=== PATIENT | female | born 1980 | race Caucasian/White ===

== ENCOUNTER 2017-03-23 11:22 | Outpatient (CLI) | payer MEDICAID ==
[~2017-03-23 11:22] MED LIST: PREN1TAB62 PO; QUESTRAN PO; URSO300C21 GTB
--- NOTE | 2017-03-23 12:10 | RADRPT ---
AMENDMENT: 03/23/2017 12:13:36 PM Nic Allen M.D Amended report: PROCEDURE: OB ultrasound for biophysical profile CLINICAL INDICATION: Gestational diabetes mellitus. TECHNIQUE: Multiple sonographic images of the pelvis were obtained. Transabdominal view of the gr avid uterus are available for review. The images were reviewed on a PACS workstation. COMPARISON: None FINDINGS: breathing movement = 2/2 tone = 2/2 motion = 2/2 Quantitative amniotic fluid volume = 2/2 LIZ = 17.1 cm Single live intrauterine with cardiac activity at 135 beats per minute. There is a anterior placenta without previa or abruption. IMPRESSION: 1. Single living intrauterine gestation in cephalic position. 2. Biophysical profile = 8/8. 3. LIZ = 17.1 cm. RPTAT: [facility] PROCEDURE: OB ultrasound for biophysical profile CLINICAL INDICATION: Gestational diabetes mellitus. TECHNIQUE: Multiple sonographic images of the pelvis were obtained. Transabdominal view of the gr avid uterus are available for review. The images were reviewed on a PACS workstation. COMPARISON: None FINDINGS: breathing movement = 2/2 tone = 2/2 motion = 2/2 Quantitative amniotic fluid volume = 2/2 LIZ = 17.1 cm Single live intrauterine with cardiac activity at 135 beats per minute. There is a anterior placenta without previa or abruption. IMPRESSION: 1. Single living intrauterine gestation in cephalic position. 2. Biophysical profile = 8/8. 3. LIZ = 17 point Y cm. RPTAT: [facility] Physician Petar Date Time Electronically viewed and signed by Physician Petar on 03/23/2017 12:13 /
--- NOTE | 2017-03-23 13:28 | PN ---
Triage Information Date/Time Reason for visit: GDM for NST BPP Weeks of Gestation 32+ /Para 4/3 Diabetes: none, gestational Diabetes management: diet controlled Hypertention: none Objective Heart Rate: 140's Contractions: None Results/Medications Results 24 hrs Laboratory Tests Test 03/23/17 12:03 Bedside Glucose 99 Disposition: Discharge ALLAN RIVAS M.D. Mar 23, 2017 13:28
--- NOTE | 2017-03-23 13:49 | TRIAGE ---
OB Triage Datetime Report Generated by CPN: 03/23/2017 13:48 Datetime: 03/23/2017 13:23 Stage of : OB Triage Datetime: 03/23/2017 12:43 Labor Evaluation Frequency: 0 Monitor Mode: External Resting Tone [place]: Relaxed Heart Rate FHR Baseline Rate: 145 Monitor Mode: External US Variability: Moderate 6-25 bpm Accelerations: 10X10 Decelerations: None Category: Category I Pain Assessment Pain Scale: 0 Pain Presence: None/Denies Pain Type: N/A Pain Goal: 3 Pain Relief Measures: Comfort Measures Datetime: 03/23/2017 12:03 Bedside Blood Glucose: 99 Datetime: 03/23/2017 11:45 Stage of : OB Triage Assessment Type: Triage EGA: 32.0 Time Provider Notified: 03/23/2017 13:00 Provider Notified: abusleme Maternal Assessment Level of Consciousness: Fully Conscious DTR's/Clonus: DTRs 2+; No Clonus Headache: Denies Blurred Vision: No Respiratory Effort: Unlabored; Regular Rhythm; Equal Expansion Breath Sounds, Left: Clear and Equal Breath Sounds, Right: Clear and Equal Nausea/Vomiting: Denies RUQ Epigastric Pain: Denies Facial Edema: None Temperature Route: Axillary Fall Risk Assessment History of Falling: (0) No Secondary Diagnosis: (0) No Ambulatory Aid: (0) Bedrest/Nurse Assist IV Therapy: (0) No Gait: (0) Normal/Bedrest/Immobile Mental Status: (0) Oriented to Own Ability Fall Score: 0 Fall Risk Score Definition: No Risk: No action required Labor Evaluation Frequency: 0 Monitor Mode: External Pattern: Normal: <= 5 Contractions in 10 Minutes Resting Tone [place]: Relaxed Heart Rate FHR Baseline Rate: 155 Monitor Mode: External US Variability: Moderate 6-25 bpm Accelerations: 10X10 Decelerations: None Category: Category I Pain Assessment Pain Scale: 0 Pain Presence: None/Denies Pain Type: N/A Pain Goal: 3 Pain Relief Measures: Comfort Measures Datetime: 03/23/2017 11:44 Time of Arrival: 03/23/2017 11:20 Arrived By: Ambulatory Arrived From: Home Chief Complaint: SENT FROM OFFICE FOR NST/BPP DUE TO GDM, DENIES LEAKING, UC'S, OR BLEEDING Movement: Present Contractions: Denies/Absent Rupture of Membranes: Denies Vaginal Bleeding: None Vaginal Discharge: Denies Recent Sexual Intercouse: Denies Abdominal Trauma: Not Applicable Patient Complaints: None Time Provider Notified: 03/23/2017 13:00 Provider Notified: abusleme Initial Plan: MONITOR, BPP, NST
== END 2017-03-23 13:30 | disposition home or self-care (01) ==
LOC: OBT 11:22 → L-D 11:22 → OBT 13:30
PROVIDERS: ATTEND Obstetrics & Gynecology
DX: O24.410 Gestational diabetes mellitus in pregnancy, diet controlled (principal); Z3A.32 32 weeks gestation of pregnancy
CPT/HCPCS: 76818; 82962; Z7500; G0463

== ENCOUNTER 2017-03-30 09:58 | Outpatient (CLI) | payer MEDICAID ==
[~2017-03-30] VITALS: Ht 152.4 cm; Wt 79.1 kg
[~2017-03-30 09:58] MED LIST changes: -QUESTRAN PO; -URSO300C21 GTB
[2017-03-30 10:26] VITALS: Ht 152.4 cm; Wt 79.1 kg
[2017-03-30 10:27] VITALS: BP 114/59; PULSE 80; RESP 18
--- NOTE | 2017-03-30 11:06 | RADRPT ---
PROCEDURE: US OB biophysical profile. CLINICAL INDICATION: evaluation TECHNIQUE: Multiple sonographic images of the pelvis were obtained. The images were reviewed on a PACS workstation. COMPARISON: No prior studies are available for comparison. FINDINGS: There is a single viable intrauterine gestation. Cardiac activity is present with 143 beats per min angela. There is a vertex presentation. The placenta is anterior. There is no evidence of placental abruption. There is a normal amount of amniotic fluid with an LIZ = 10.6 cm. Biophysical profile: movement 2/2 tone 2/2. breathing 2/2 LIZ 2/2 Total 01/16 RPTAT: [facility] . IMPRESSION: Normal biophysical profile. Physician Carlos Date Time Electronically viewed and signed by Physician Carlos on 03/30/2017 11:06 /
--- NOTE | 2017-03-30 11:30 | PN ---
Triage Information Date/Time Reason for visit: NST /BPP Weeks of Gestation 33+ /Para 4/3 Diabetes: gestational Diabetes management: diet controlled Hypertention: none Objective Vital Signs Date Time Temp Pulse Resp B/P Pulse Ox O2 Delivery O2 Flow Rate FiO2 03/30/17 10:27 99.0 80 18 114/59 96 Room Air Heart Rate: 140's Disposition: Discharge Assessment/Plan follow up with provider Precautions discussed with patient ALLAN RIVAS M.D. Mar 30, 2017 11:30
== END 2017-03-30 12:15 | disposition home or self-care (01) ==
LOC: L-D 09:58 → OBT 09:58
PROVIDERS: ATTEND Obstetrics & Gynecology
DX: O24.410 Gestational diabetes mellitus in pregnancy, diet controlled (principal); Z3A.33 33 weeks gestation of pregnancy
CPT/HCPCS: 76818; Z7500; G0463

== ENCOUNTER 2017-04-06 08:33 | Outpatient (CLI) | payer MEDICAID ==
[~2017-04-06] VITALS: Ht 152.4 cm; Wt 79.4 kg
[2017-04-06 08:42] VITALS: BP 109/62; PULSE 82; RESP 18; Ht 152.4 cm; Wt 79.4 kg
[2017-04-06] MEDS ORDERED: FERR134T PO (08:50)
--- NOTE | 2017-04-06 09:12 | RADRPT ---
PROCEDURE: US OB biophysical profile. CLINICAL INDICATION: decreased movements, GDM TECHNIQUE: Multiple sonographic images of the pelvis were obtained. The images were reviewed on a PACS workstation. COMPARISON: 03/30/2017 FINDINGS: There is a single viable intrauterine gestation. Cardiac activity is present with 176 beats per min angela. There is a vertex presentation. The placenta is anterior. There is no evidence of placental abruption. There is a normal amount of amniotic fluid with an LIZ = 12.5 cm. Biophysical profile: movement 2/2 tone 2/2. breathing 2/2 LIZ 2/2 Total 01/16 RPTAT: [facility] . IMPRESSION: Normal biophysical profile. . .Tirso Miranda MD, MD Date Time Electronically viewed and signed by .Tirso Miranda MD, MD on 04/06/2017 09:12 .S/
--- NOTE | 2017-04-06 10:13 | PN ---
Triage Information Date/Time Reason for visit: NST/BPP Weeks of Gestation 34+ /Para 4/3 Diabetes: none, gestational Diabetes management: diet controlled Hypertention: none Objective Vital Signs Date Time Temp Pulse Resp B/P Pulse Ox O2 Delivery O2 Flow Rate FiO2 04/06/17 08:42 98.3 82 18 109/62 96 Room Air Heart Rate: 140's Contractions: None Disposition: Discharge Assessment/Plan Precautions discussed Patient's questions answered ALLAN RIVAS M.D. Apr 06, 2017 10:13
--- NOTE | 2017-04-06 13:06 | TRIAGE ---
OB Triage Datetime Report Generated by CPN: 04/06/2017 13:06 Datetime: 04/06/2017 10:00 Stage of : OB Triage Datetime: 04/06/2017 09:58 Heart Rate FHR Baseline Rate: 145 Monitor Mode: External US Variability: Moderate 6-25 bpm Accelerations: 15X15 Decelerations: None Category: Category I Comments: NST REACTIVE FOR GESTATIONAL AGE Datetime: 04/06/2017 08:48 Stage of : OB Triage Assessment Type: Triage Maternal Assessment Level of Consciousness: Fully Conscious DTR's/Clonus: DTRs 2+; No Clonus Headache: Denies Blurred Vision: No Respiratory Effort: Unlabored; Regular Rhythm; Equal Expansion Breath Sounds, Left: Clear and Equal Breath Sounds, Right: Clear and Equal Nausea/Vomiting: Denies RUQ Epigastric Pain: Denies Lower Extremities Edema: None Degree: None Upper Extremities Edema: None Degree: None Facial Edema: None Temperature Route: Axillary Fall Risk Assessment History of Falling: (0) No Secondary Diagnosis: (0) No Ambulatory Aid: (0) Bedrest/Nurse Assist IV Therapy: (0) No Gait: (0) Normal/Bedrest/Immobile Mental Status: (0) Oriented to Own Ability Fall Score: 0 Fall Risk Score Definition: No Risk: No action required Pain Assessment Pain Scale: 0 Pain Presence: None/Denies Pain Type: N/A Datetime: 04/06/2017 08:47 Time of Arrival: 04/06/2017 08:30 EGA: 34.0 Arrived By: Ambulatory Arrived From: Home Chief Complaint: nst/ bpp for gdm diet controlled Movement: Present Contractions: Denies/Absent Rupture of Membranes: Denies Vaginal Bleeding: None Vaginal Discharge: Denies Recent Sexual Intercouse: Denies Abdominal Trauma: Not Applicable Additional Patient Complaints: fasting bg 96mg/ ml Initial Plan: nst / bpp Datetime: 04/06/2017 08:44 Comments: pt states " my baby is moving alot " Datetime: 04/06/2017 08:35 Monitor Mode: External US Datetime: 03/30/2017 10:53 Fall Score: 0 Fall Risk Score Definition: No Risk: No action required Datetime: 03/23/2017 13:42 EGA: 33.0 Datetime: 03/23/2017 11:45 EGA: 32.0 Fall Score: 0 Fall Risk Score Definition: No Risk: No action required
== END 2017-04-06 10:15 | disposition home or self-care (01) ==
LOC: OBT 08:33 → L-D 08:33 → OBT 10:15
PROVIDERS: ATTEND Obstetrics & Gynecology
DX: O24.410 Gestational diabetes mellitus in pregnancy, diet controlled (principal); Z3A.34 34 weeks gestation of pregnancy
CPT/HCPCS: 76818; Z7500; G0463

== ENCOUNTER 2017-04-20 08:48 | Outpatient (CLI) | payer MEDICAID ==
[~2017-04-20] VITALS: Ht 152.4 cm; Wt 80.5 kg
[~2017-04-20 08:48] MED LIST changes: +FERR134T PO
[2017-04-20 08:54] VITALS: BMI 34.7
[2017-04-20 08:55] VITALS: Ht 152.4 cm; Wt 80.5 kg
[2017-04-20 08:56] VITALS: BP 121/70
--- NOTE | 2017-04-20 09:33 | RADRPT ---
PROCEDURE: OB ultrasound for biophysical profile CLINICAL INDICATION: Gestational diabetes TECHNIQUE: Multiple sonographic images of the pelvis were obtained. Transabdominal views of the g ravid uterus are available for review. The images were reviewed on a PACS workstation. COMPARISON: OB ultrasound, biophysical profile dated 04/06/2017 FINDINGS: breathing movement = 2/2 tone = 2/2 motion = 2/2 LIZ = 2/2 LIZ = 15.5 cm Single live intrauterine with cardiac activity of 144 bpm. position is cephal ic. The placenta appears bilobed with predominately anterior component. IMPRESSION: 1. Single live intrauterine gestation. 2. Biophysical profile = 8. 3. LIZ = 15.5 cm. 4. The placenta appears bilobed with predominantly anterior component. RPTAT: [facility] .Payal Loja MD, Date Time Electronically viewed and signed by .Payal Loja MD, on 04/20/2017 09:33 .G/
--- NOTE | 2017-04-20 10:33 | PN ---
Triage Information Date/Time Reason for visit: NST BPP Weeks of Gestation 36+ /Para 4/3 Diabetes: gestational Diabetes management: diet controlled Hypertention: none Objective Vital Signs Date Time Temp Pulse Resp B/P Pulse Ox O2 Delivery O2 Flow Rate FiO2 04/20/17 08:56 98.5 121/70 Room Air Heart Rate: 140's Contractions: None Disposition: Discharge Assessment/Plan nST reactive BPP 01/16 Discharged with precautions Instructions reviewed with patient ALLAN RIVAS M.D. Apr 20, 2017 10:33
== END 2017-04-20 10:57 | disposition home or self-care (01) ==
LOC: L-D 08:48 → OBT 08:48
PROVIDERS: ATTEND Obstetrics & Gynecology
DX: O24.410 Gestational diabetes mellitus in pregnancy, diet controlled (principal); Z3A.36 36 weeks gestation of pregnancy
CPT/HCPCS: 76818; Z7500; G0463

== ENCOUNTER 2017-05-10 14:36 | Inpatient (IN) | payer MEDICAID ==
[~2017-05-10] VITALS: Ht 154.9 cm; Wt 81.2 kg
[2017-05-10 15:55] VITALS: Ht 154.9 cm; Wt 81.2 kg
[2017-05-10 16:07] VITALS: BP 110/74; PULSE 77; RESP 18
[2017-05-10] MEDS ORDERED: LIDOCAINE 1% (MPF) 30 ML INJ INJ PRN (17:00)
[2017-05-10] MEDS ORDERED: MISOPROSTOL 200 MCG TAB PR PRN (17:00)
[2017-05-10] MEDS ORDERED: OXYTOCIN 30 UNITS/LR 500 ML IV SCH ×2 (17:00)
[2017-05-10] MEDS ORDERED: OXYCODONE/ACETAMINOPHEN (5/325) TAB PO PRN (17:00)
[2017-05-10] MEDS ORDERED: METHYLERGONOVINE 0.2 MG INJ IM PRN (17:00)
[2017-05-10] MEDS ORDERED: CARBOPROST 250 MCG INJ IM PRN (17:00)
[2017-05-10] MEDS ORDERED: IBUPROFEN 600 MG TAB PO PRN (17:00)
[2017-05-10] MEDS ORDERED: OXYTOCIN 30 UNITS/LR 500 ML IV PRN (17:00)
[2017-05-10] MEDS: LACTATED RINGER'S 1,000 ML IV SCH ×2 (17:03→20:11)
[2017-05-10 17:04] LABS: BASOPHILS % 0.3 % (0.0-2.0); EOSINOPHILS % 0.6 % (0.0-7.0); HEMATOCRIT 37.5 % (37.0-47.0); HEMOGLOBIN 13.3 g/dl (12.0-16.0); LYMPHOCYTES % 28.5 % (15.0-51.0); MEAN CORPUSCULAR HEMOGLOBIN 32.4 pg (29.0-33.0); MEAN CORPUSCULAR HGB CONC 35.5 g/dl (32.0-37.0); MEAN CORPUSCULAR VOLUME 91.2 fl (82.0-101.0); MEAN PLATELET VOLUME 12.2 fl (7.4-10.4); MONOCYTE # 0.4 10^3/ul (0.3-0.9); MONOCYTES % 5.4 % (0.0-11.0); NEUTROPHIL # 4.5 10^3/ul (1.6-7.5); NEUTROPHILS % 64.5 % (39.0-77.0); PLATELET COUNT 170 10^3/UL (140-415); RED BLOOD COUNT 4.11 10^6/ul (4.20-5.40); RED CELL DISTRIBUTION WIDTH 13.1 % (11.5-14.5)
[2017-05-10 17:22] LABS: INR 0.9; PROTIME 12.2 Sec (11.9-14.9)
[2017-05-10 17:23] LABS: PARTIAL THROMBOPLASTIN TIME 25.2 Sec (25.0-35.0)
[2017-05-10] MEDS ORDERED: AMPICILLIN 2 GM/NS (PMX) 100 ML IV ONE (17:30)
[2017-05-10] MEDS ORDERED: DINOPROSTONE 10 MG VAG SUPP VAG ONE (18:30)
--- NOTE | 2017-05-10 18:39 | RADRPT ---
PROCEDURE: US OB. CLINICAL INDICATION: Size and dates TECHNIQUE: Multiple sonographic images of the pelvis and gravid uterus were obtained. The images were reviewed on a PACS workstation. COMPARISON: No prior studies are available for comparison. FINDINGS: There is a single viable intrauterine gestation. Cardiac activity is present with 156 beats per min angela. There is a vertex presentation. The placenta is anterior. There is no evidence for an abruption or placenta previa. Measurements were made in order to determine age. The results are as follows: BPD =9.5 cm HC =33.8 cm AC =35 cm FL =7.6 cm Estimated gestational age of approximately 38 weeks and 6 days based on ultrasound measurements. Clinical age: 38 weeks and 6 days. The estimated date of delivery is 05/18/17, based on ultrasound measurements. The EFW = 3621 g, 69%, based on LMP age. RPTAT: [facility] IMPRESSION: Single viable intrauterine gestation of approximately 38 weeks and 6 days based on ultrasound measu rements. .Tirso Miranda MD, Date Time Electronically viewed and signed by .Tirso Miranda MD, on 05/10/2017 18:39 .S/
[2017-05-10] MEDS: ACCU-CHEK XX SCH (18:47)
--- NOTE | 2017-05-10 19:10 | RADRPT ---
PROCEDURE: US OB biophysical profile. CLINICAL INDICATION: decreased movements TECHNIQUE: Multiple sonographic images of the pelvis were obtained. The images were reviewed on a PACS workstation. COMPARISON: Same day FINDINGS: There is a single viable intrauterine gestation. Cardiac activity is present with 154 beats per min angela. There is a vertex presentation. The placenta is anterior. There is no evidence of placental abruption. There is a normal amount of amniotic fluid with an LIZ = 10.7 cm. Biophysical profile: movement 2/2 tone 2/2. breathing 2/2 LIZ 2/2 Total 01/16 RPTAT: [facility] . IMPRESSION: Normal biophysical profile. . .Tirso Miranda MD, MD Date Time Electronically viewed and signed by .Tirso Miranda MD, MD on 05/10/2017 18:43 .S/
[2017-05-10] MEDS: DEXTROSE 5%-LR 1,000 ML IV SCH (21:09)
[2017-05-10] MEDS: AMPICILLIN 1 GM/NS (PMX) 50 ML IV SCH (21:36)
[2017-05-11] MEDS: AMPICILLIN 1 GM/NS (PMX) 50 ML IV SCH ×4 (01:43→13:28)
[2017-05-11] MEDS: ACCU-CHEK XX SCH ×4 (02:20→09:00)
[2017-05-11] MEDS: DEXTROSE 5%-LR 1,000 ML IV SCH ×2 (04:40→12:40)
[2017-05-11] MEDS: LACTATED RINGER'S 1,000 ML IV SCH ×3 (08:30→11:34)
[2017-05-11] MEDS ORDERED: FENTAnyl 2MCG/ML-ROPIV 0.2% 100 ML ONE (09:28)
[2017-05-11] MEDS ORDERED: OXYTOCIN 30 UNITS/LR 500 ML IV SCH (09:30)
[2017-05-11] MEDS ORDERED: FENTAnyl 2MCG/ML-ROPIV 0.2% 100 ML BAG EPI SCH (10:00)
[2017-05-11] MEDS ORDERED: NALOXONE (0.4 MG/ML) INJ IV PRN (10:00)
[2017-05-11] MEDS ORDERED: ONDANSETRON 4 MG INJ IV PRN ×2 (10:00→16:30)
[2017-05-11] MEDS ORDERED: DIPHENHYDRAMINE 50 MG INJ IV PRN (10:00)
--- NOTE | 2017-05-11 14:26 | HP ---
Date/Time of Note Date/Time of Note DATE: 05/11/17 TIME: 14:18 OB - History Hx of Present Free Text/Dictation admitted for GDM AT 39 WEEKS OF GESTATION EARLY LABOR AND AUGMENTATION Estimated Due Date: May 17, 2017 : 4 Para: 3 Care: Good Care Ultrasounds: Normal mid trimester US Obstetrical Complications: Gestational Diabetes Medical Complications: None Past Family/Social History * Past Medical, Surgical, Family and Obstetric Histories reviewed from chart. Blood Type: O+ Rubella: immune RPR/VDRL: Negative GBS Status: Positive HBsAG: Negative OB Admission Exam Vital Signs Vital Signs Vital Signs Date Time Temp Pulse Resp B/P Pulse Ox O2 Delivery O2 Flow Rate FiO2 05/10/17 16:07 98.9 77 18 110/74 Room Air Physical Exam HEENT: WNL Heart: Rhythm Normal Lungs: Clear, Equal Abdomen: WNL Extremities: Normal Reflexes: Normal Cervical Dilatation: 3cm Effacement: 50% Station: -3 Membranes: Intact Heart Rate: 130's Accelerations: Accelerations Present Varibility: Moderate Contractions on Admission: >10 Minutes Apart Intensity: Mild Last 72 hourBlood Glucose Bedside Glucose - 72 Hours Test 05/10/17 18:20 05/10/17 22:17 05/11/17 02:29 05/11/17 06:40 Bedside Glucose 73mg/dL (70-220) 99mg/dL (70-220) 104mg/dL (70-220) 86mg/dL (70-220) Test 05/11/17 10:36 Bedside Glucose 86mg/dL (70-220) Last 72 hours Lab Results CBC & BMP 05/10/17 16:30 OB Assessment/Plan Reason for admission: induction of labor Plan: Induction Induction Method: per Misoprostol Protocol Other plan: DELIVERY ORACIO MOY MD May 11, 2017 14:26
--- NOTE | 2017-05-11 16:10 | LDN ---
Date/Time of Note Date/Time of Note DATE: 05/11/17 TIME: 16:08 Delivery Summary Weeks of Gestation 39 Placenta Delivered: Spontaneously Meconium: none Episiotomy: No Perineal laceration: 0 Anesthesia type: Epidural Sponge & Needle done & correct: Yes All needle counts correct: Yes Any foreign bodies felt in the: No Problems: Infant Delivery Information Sex Infant Sex: female Apgars 1 Minute: 9 5 Minute: 9 Suctioning Nose & mouth suctioned at jennifer: Yes Umbilical Cord Umbilical cord with: 3 Vessels Cord presentations: no nuchal cord Cord Blood was obtained: Yes Mother & Baby Disposition Disposition Mom & Baby to Maternity; Good: Yes ORACIO MOY MD May 11, 2017 16:10
[2017-05-11] MEDS: OXYTOCIN 30 UNITS/LR 500 ML IV SCH ×2 (16:19→20:43)
[2017-05-11] MEDS ORDERED: DIPHENHYDRAMINE 25 MG CAP PO PRN (16:30)
[2017-05-11] MEDS ORDERED: BENZOCAINE 20% 56 ML SPRAY TOP PRN (16:30)
[2017-05-11] MEDS ORDERED: MISOPROSTOL 200 MCG TAB PR PRN (16:30)
[2017-05-11] MEDS ORDERED: LANOLIN 7 GM TUBE TOP PRN (16:30)
[2017-05-11] MEDS ORDERED: DIBUCAINE 1% 30 GM OINT PR PRN (16:30)
[2017-05-11] MEDS ORDERED: OXYTOCIN 30 UNITS/LR 500 ML IV PRN (16:30)
[2017-05-11] MEDS ORDERED: HYDROCODONE/APAP (5/325) TAB PO PRN ×2 (16:30)
[2017-05-11] MEDS ORDERED: ACETAMINOPHEN 325 MG TAB PO PRN ×2 (16:30)
[2017-05-11] MEDS ORDERED: METHYLERGONOVINE 0.2 MG INJ IM PRN (16:30)
[2017-05-11] MEDS ORDERED: CARBOPROST 250 MCG INJ IM PRN (16:30)
[2017-05-11] MEDS: IBUPROFEN 800 MG TAB PO SCH (17:39)
[2017-05-11 18:30] VITALS: BP 126/67; RESP 18
[2017-05-11 20:25] VITALS: BP 105/57; PULSE 67; RESP 18
[2017-05-11] MEDS: SENNA/DOCUSATE NA (8.6MG/50MG) TAB PO SCH (20:43)
[2017-05-12] VITALS: BP 126/80; PULSE 77; RESP 18
[2017-05-12] MEDS: IBUPROFEN 800 MG TAB PO SCH ×4 (00:10→17:46)
[2017-05-12 04:10] VITALS: BP 119/68; PULSE 71; RESP 18
[2017-05-12 08:00] VITALS: BP 127/61; PULSE 65; RESP 18
[2017-05-12] MEDS: SENNA/DOCUSATE NA (8.6MG/50MG) TAB PO SCH ×2 (08:51→20:44)
[2017-05-12 09:10] LABS: BASOPHILS % 0.2 % (0.0-2.0); EOSINOPHILS # 0.1 10^3/ul (0.0-0.5); EOSINOPHILS % 1.3 % (0.0-7.0); HEMATOCRIT 29.3 % (37.0-47.0); HEMOGLOBIN 10.3 g/dl (12.0-16.0); LYMPHOCYTES # 1.9 10^3/ul (0.8-2.9); LYMPHOCYTES % 21.1 % (15.0-51.0); MEAN CORPUSCULAR HEMOGLOBIN 32.5 pg (29.0-33.0); MEAN CORPUSCULAR HGB CONC 35.2 g/dl (32.0-37.0); MEAN CORPUSCULAR VOLUME 92.4 fl (82.0-101.0); MEAN PLATELET VOLUME 12.2 fl (7.4-10.4); MONOCYTE # 0.5 10^3/ul (0.3-0.9); MONOCYTES % 5.6 % (0.0-11.0); NEUTROPHIL # 6.3 10^3/ul (1.6-7.5); NEUTROPHILS % 71.1 % (39.0-77.0); PLATELET COUNT 124 10^3/UL (140-415); RED BLOOD COUNT 3.17 10^6/ul (4.20-5.40); RED CELL DISTRIBUTION WIDTH 13.2 % (11.5-14.5); WHITE BLOOD COUNT 8.9 10^3/ul (4.8-10.8)
--- NOTE | 2017-05-12 11:34 | PN ---
Date/Time of Note Date/Time of Note DATE: 05/12/17 TIME: 11:30 OB Subjective Subjective Subjective Post day 1 Doing Well Afebrile Ambulatory Chest Clear Breasts are soft , Nipples are intact Abdomen is soft Fundus is firm Moderate amount of lochia No evidence of infection No calf tenderness No ankle edema Laboratory Tests Test 05/11/17 14:36 05/11/17 22:36 05/12/17 08:21 05/12/17 08:33 Bedside Glucose 60mg/dL 115mg/dL 114mg/dL White Blood Count 8.910^3/ul Red Blood Count 3.1710^6/ul Hemoglobin 10.3g/dl Hematocrit 29.3% Mean Corpuscular Volume 92.4fl Mean Corpuscular Hemoglobin 32.5pg Mean Corpuscular Hemoglobin Concent 35.2g/dl Red Cell Distribution Width 13.2% Platelet Count 05220^3/UL Mean Platelet Volume 12.2fl Neutrophils % 71.1% Lymphocytes % 21.1% Monocytes % 5.6% Eosinophils % 1.3% Basophils % 0.2% Nucleated Red Blood Cells % 0.0/100WBC Neutrophils # 6.310^3/ul Lymphocytes # 1.910^3/ul Monocytes # 0.510^3/ul Eosinophils # 0.110^3/ul Basophils # 0.010^3/ul Nucleated Red Blood Cells # 0.010^3/ul Test 05/12/17 10:56 Bedside Glucose 128mg/dL Current Medications Medications (Trade) Dose Ordered Sig/Leeroy Route PRN Reason Start Time Stop Time Status Last Admin Dose Admin Lactated Ringer's (Lr) 1,000 ml @ 125 mls/hr Q8H IV 05/10/17 16:37 05/11/17 16:09 DC 05/11/17 11:34 Lidocaine 30 ml 30 ml ONCE PRN INJ EPISIOTOMY/TEARING 05/10/17 17:00 05/11/17 16:09 DC Oxytocin/Lactated Ringer's 500 ml @ 125 mls/hr ONCE -MAY REPEAT X1 IV 05/10/17 17:00 05/11/17 16:09 DC Oxytocin/Lactated Ringer's 500 ml @ 125 mls/hr ONCE IV 05/10/17 17:00 05/11/17 16:09 DC Ibuprofen (Motrin) 600 mg ONCE PRN PO Mild Pain (Pain Score 1-3) 05/10/17 17:00 05/11/17 16:09 DC Oxycodone/ Acetaminophen 2 tab 2 tab ONCE PRN PO Moderate to Severe Pain (4-10) 05/10/17 17:00 05/11/17 16:09 DC Oxytocin/Lactated Ringer's 500 ml @ 0 mls/hr ONCE PRN IV For Hemorrhage Management 05/10/17 17:00 05/11/17 16:09 DC Methylergonovine Maleate (Methergine) 0.2 mg ONCE PRN IM VAGINAL BLEEDING 05/10/17 17:00 05/11/17 16:09 DC Carboprost Tromethamine (Hemabate) 250 mcg ONCE PRN IM VAGINAL BLEEDING 05/10/17 17:00 05/11/17 16:09 DC Misoprostol 1000 mcg 1,000 mcg ONCE PRN NM VAGINAL BLEEDING 05/10/17 17:00 05/11/17 16:09 DC Ampicillin 100 ml @ 100 mls/hr ONCE ONCE IV 05/10/17 17:30 05/10/17 18:29 DC 05/10/17 17:23 Ampicillin (Ampicillin 1 Gm/ NS (Pmx)) 50 ml @ 100 mls/hr Q4H IV 05/10/17 21:30 05/11/17 16:09 DC 05/11/17 13:28 Dinoprostone (Cervidil Vaginal Supp) 10 mg ONCE ONCE VAG 05/10/17 18:30 05/10/17 18:31 DC 05/10/17 20:25 Diagnostic Test (Pha) 1 ea 1 ea Q4 XX 05/10/17 18:00 05/11/17 16:09 DC 05/11/17 02:20 Dextrose/Lactated Ringer's 1,000 ml @ 125 mls/hr Q8H IV 05/10/17 20:40 05/11/17 16:09 DC 05/10/17 21:09 Oxytocin/Lactated Ringer's 500 ml @ 0 mls/hr Q0M IV 05/11/17 09:30 05/11/17 16:09 DC 05/11/17 09:56 Fentanyl/ Ropivacaine 100 ml @ STK-MED ONCE .ROUTE 05/11/17 09:28 05/11/17 09:29 DC Naloxone HCl (Narcan) 0.1 mg Q2M PRN IV FOR RESP RATE 8 OR LESS 05/11/17 10:00 05/11/17 16:09 DC Diphenhydramine HCl (Benadryl) 25 mg Q6H PRN IV ITCHING 05/11/17 10:00 05/11/17 16:09 DC Ondansetron HCl (Zofran Inj) 4 mg Q6H PRN IV NAUSEA AND/OR VOMITING 05/11/17 10:00 05/11/17 16:09 DC Fentanyl/ Ropivacaine 100 ml 100 ml EPIDURAL INFUSION EPI 05/11/17 10:00 05/11/17 16:09 DC Oxytocin/Lactated Ringer's 500 ml @ 125 mls/hr Q4H IV 05/11/17 16:02 05/12/17 00:01 DC 05/11/17 20:43 Ibuprofen (Motrin) 800 mg Q6 PO 05/11/17 18:00 05/12/17 05:53 Acetaminophen (Tylenol Tab) 650 mg Q4H PRN PO PAIN LEVEL 1-5 05/11/17 16:30 Acetaminophen/ Hydrocodone Bitart ([place] (5/325)) 1 tab Q4H PRN PO PAIN LEVEL 1-5 05/11/17 16:30 Acetaminophen/ Hydrocodone Bitart ([place] (5/325)) 2 tab Q4H PRN PO PAIN LEVEL 6-10 05/11/17 16:30 Ondansetron HCl (Zofran Inj) 4 mg Q6H PRN IV NAUSEA AND/OR VOMITING 05/11/17 16:30 Diphenhydramine HCl (Benadryl) 25 mg Q6H PRN PO PRURITUS 05/11/17 16:30 Senna/Docusate Sodium (Senokot-S) 1 tab BID PO 05/11/17 21:00 05/12/17 08:51 Benzocaine (Dermoplast Manning) 1 spray BEDSIDE MEDICATION PRN TOP HEMORRHOID/EPISIOTMY PAIN 05/11/17 16:30 Dibucaine (Nupercainal) 1 applic BEDSIDE MEDICATION PRN NM HEMORRHOID/EPISIOTMY PAIN 05/11/17 16:30 Lanolin (Pci-F-Losrlx) 1 applic BEDSIDE MEDICATION PRN TOP BEDSIDE FOR SYMONE TO NIPPLES 05/11/17 16:30 05/11/17 20:42 Measles/Mumps/ Rubella Vaccine Live (Mmr Ii Vaccine) 0.5 ml ONCE ONCE SC* 05/13/17 09:00 05/13/17 09:01 Diphtheria/ Tetanus/Acell Pertussis (Adacel) 0.5 ml ONCE ONCE IM* 05/13/17 09:00 05/13/17 09:01 Varicella Virus Vaccine Live (Varivax Vaccine With Diluent) 1,350 unit ONCE ONCE SC* 05/13/17 09:00 05/13/17 09:01 Acetaminophen 650 mg 650 mg Q4H PRN PO ELEVATED TEMPERATURE 05/11/17 16:30 Oxytocin/Lactated Ringer's 500 ml @ 0 mls/hr ONCE PRN IV For Hemorrhage Management 05/11/17 16:30 Methylergonovine Maleate (Methergine) 0.2 mg ONCE PRN IM VAGINAL BLEEDING 05/11/17 16:30 Carboprost Tromethamine (Hemabate) 250 mcg ONCE PRN IM VAGINAL BLEEDING 05/11/17 16:30 Misoprostol (Cytotec) 1,000 mcg ONCE PRN NM VAGINAL BLEEDING 05/11/17 16:30 Influenza Virus Vaccine (Fluzone) 0.5 ml ONCE ONCE IM* 05/12/17 20:00 05/12/17 20:01 New born is doing well, Breast feeding Blood glucose is 115 today GILBERTO TRUJILLO MD May 12, 2017 11:34
[2017-05-12 16:00] VITALS: BP 124/72; RESP 18
[2017-05-12 19:50] VITALS: BP 114/75; PULSE 72; RESP 20
[2017-05-12] MEDS ORDERED: INFLUENZA VIRUS VACCINE 0.5 ML SYG IM* ONE (20:00)
[2017-05-13] MEDS: IBUPROFEN 800 MG TAB PO SCH ×3 (00:24→11:39)
[2017-05-13 04:45] VITALS: BP 120/69; PULSE 70; RESP 20
[2017-05-13 07:20] VITALS: BP 114/67; RESP 19
[2017-05-13] MEDS ORDERED: DIPHTH/TET/ACEL PERTUSS (ADULT) 0.5 ML VIAL IM* ONE (09:00)
[2017-05-13] MEDS ORDERED: VARICELLA VACCINE LIVE/PF 1,350 UNIT/0.5 ML ML SC* ONE (09:00)
[2017-05-13] MEDS ORDERED: MEASLES,MUMPS,RUBELLA VACCINE INJ SC* ONE (09:00)
[2017-05-13] MEDS: SENNA/DOCUSATE NA (8.6MG/50MG) TAB PO SCH (09:02)
--- NOTE | 2017-05-13 10:36 | DS ---
Date/Time of Note Date/Time of Note DATE: 05/13/17 TIME: 10:34 Obstetrical Discharge Record Final Diagnosis Final Diagnosis: Term delivered Other Final Diagnosis Post vaginal delivery day 2 Doing Well Afebrile Ambulatory Chest Clear Breasts are soft , Nipples are intact Abdomen is soft Fundus is firm Moderate amount of lochia No calf tenderness No ankle edema Laboratory Tests Test 05/12/17 10:56 05/12/17 14:39 05/12/17 20:42 05/13/17 08:44 Bedside Glucose 128mg/dL 131mg/dL 129mg/dL 89mg/dL Current Medications Medications (Trade) Dose Ordered Sig/Leeroy Route PRN Reason Start Time Stop Time Status Last Admin Dose Admin Lactated Ringer's (Lr) 1,000 ml @ 125 mls/hr Q8H IV 05/10/17 16:37 05/11/17 16:09 DC 05/11/17 11:34 Lidocaine 30 ml 30 ml ONCE PRN INJ EPISIOTOMY/TEARING 05/10/17 17:00 05/11/17 16:09 DC Oxytocin/Lactated Ringer's 500 ml @ 125 mls/hr ONCE -MAY REPEAT X1 IV 05/10/17 17:00 05/11/17 16:09 DC Oxytocin/Lactated Ringer's 500 ml @ 125 mls/hr ONCE IV 05/10/17 17:00 05/11/17 16:09 DC Ibuprofen (Motrin) 600 mg ONCE PRN PO Mild Pain (Pain Score 1-3) 05/10/17 17:00 05/11/17 16:09 DC Oxycodone/ Acetaminophen 2 tab 2 tab ONCE PRN PO Moderate to Severe Pain (4-10) 05/10/17 17:00 05/11/17 16:09 DC Oxytocin/Lactated Ringer's 500 ml @ 0 mls/hr ONCE PRN IV For Hemorrhage Management 05/10/17 17:00 05/11/17 16:09 DC Methylergonovine Maleate (Methergine) 0.2 mg ONCE PRN IM VAGINAL BLEEDING 05/10/17 17:00 05/11/17 16:09 DC Carboprost Tromethamine (Hemabate) 250 mcg ONCE PRN IM VAGINAL BLEEDING 05/10/17 17:00 05/11/17 16:09 DC Misoprostol 1000 mcg 1,000 mcg ONCE PRN GA VAGINAL BLEEDING 05/10/17 17:00 05/11/17 16:09 DC Ampicillin 100 ml @ 100 mls/hr ONCE ONCE IV 05/10/17 17:30 05/10/17 18:29 DC 05/10/17 17:23 Ampicillin (Ampicillin 1 Gm/ NS (Pmx)) 50 ml @ 100 mls/hr Q4H IV 05/10/17 21:30 05/11/17 16:09 DC 05/11/17 13:28 Dinoprostone (Cervidil Vaginal Supp) 10 mg ONCE ONCE VAG 05/10/17 18:30 05/10/17 18:31 DC 05/10/17 20:25 Diagnostic Test (Pha) 1 ea 1 ea Q4 XX 05/10/17 18:00 05/11/17 16:09 DC 05/11/17 02:20 Dextrose/Lactated Ringer's 1,000 ml @ 125 mls/hr Q8H IV 05/10/17 20:40 05/11/17 16:09 DC 05/10/17 21:09 Oxytocin/Lactated Ringer's 500 ml @ 0 mls/hr Q0M IV 05/11/17 09:30 05/11/17 16:09 DC 05/11/17 09:56 Fentanyl/ Ropivacaine 100 ml @ ud STK-MED ONCE .ROUTE 05/11/17 09:28 05/11/17 09:29 DC Naloxone HCl (Narcan) 0.1 mg Q2M PRN IV FOR RESP RATE 8 OR LESS 05/11/17 10:00 05/11/17 16:09 DC Diphenhydramine HCl (Benadryl) 25 mg Q6H PRN IV ITCHING 05/11/17 10:00 05/11/17 16:09 DC Ondansetron HCl (Zofran Inj) 4 mg Q6H PRN IV NAUSEA AND/OR VOMITING 05/11/17 10:00 05/11/17 16:09 DC Fentanyl/ Ropivacaine 100 ml 100 ml EPIDURAL INFUSION EPI 05/11/17 10:00 05/11/17 16:09 DC Oxytocin/Lactated Ringer's 500 ml @ 125 mls/hr Q4H IV 05/11/17 16:02 05/12/17 00:01 DC 05/11/17 20:43 Ibuprofen (Motrin) 800 mg Q6 PO 05/11/17 18:00 05/13/17 06:07 Acetaminophen (Tylenol Tab) 650 mg Q4H PRN PO PAIN LEVEL 1-5 05/11/17 16:30 Acetaminophen/ Hydrocodone Bitart ([place] (5/325)) 1 tab Q4H PRN PO PAIN LEVEL 1-5 05/11/17 16:30 Acetaminophen/ Hydrocodone Bitart ([place] (5/325)) 2 tab Q4H PRN PO PAIN LEVEL 6-10 05/11/17 16:30 Ondansetron HCl (Zofran Inj) 4 mg Q6H PRN IV NAUSEA AND/OR VOMITING 05/11/17 16:30 Diphenhydramine HCl (Benadryl) 25 mg Q6H PRN PO PRURITUS 05/11/17 16:30 Senna/Docusate Sodium (Senokot-S) 1 tab BID PO 05/11/17 21:00 05/13/17 09:02 Benzocaine (Dermoplast [place]) 1 spray BEDSIDE MEDICATION PRN TOP HEMORRHOID/EPISIOTMY PAIN 05/11/17 16:30 Dibucaine (Nupercainal) 1 applic BEDSIDE MEDICATION PRN GA HEMORRHOID/EPISIOTMY PAIN 05/11/17 16:30 Lanolin (Hff-M-[place]) 1 applic BEDSIDE MEDICATION PRN TOP BEDSIDE FOR SYMONE TO NIPPLES 05/11/17 16:30 05/11/17 20:42 Measles/Mumps/ Rubella Vaccine Live (Mmr Ii Vaccine) 0.5 ml ONCE ONCE SC* 05/13/17 09:00 05/13/17 09:01 DC Diphtheria/ Tetanus/Acell Pertussis (Adacel) 0.5 ml ONCE ONCE IM* 05/13/17 09:00 05/13/17 09:01 DC Varicella Virus Vaccine Live (Varivax Vaccine With Diluent) 1,350 unit ONCE ONCE SC* 05/13/17 09:00 05/13/17 09:01 DC Acetaminophen 650 mg 650 mg Q4H PRN PO ELEVATED TEMPERATURE 05/11/17 16:30 Oxytocin/Lactated Ringer's 500 ml @ 0 mls/hr ONCE PRN IV For Hemorrhage Management 05/11/17 16:30 Methylergonovine Maleate (Methergine) 0.2 mg ONCE PRN IM VAGINAL BLEEDING 05/11/17 16:30 Carboprost Tromethamine (Hemabate) 250 mcg ONCE PRN IM VAGINAL BLEEDING 05/11/17 16:30 Misoprostol (Cytotec) 1,000 mcg ONCE PRN GA VAGINAL BLEEDING 05/11/17 16:30 Influenza Virus Vaccine (Fluzone) 0.5 ml ONCE ONCE IM* 05/12/17 20:00 05/12/17 20:01 DC 05/12/17 20:46 New born is doing well, Breast feeding Vaginal Delivery Obstetrical Delivery: Spontaneous Complications Rupture of Membranes: No Condition on Discharge Physical Assessment Abdomen and Incision: Patient Condition: Good GILBERTO TRUJILLO MD May 13, 2017 10:36
== END 2017-05-13 15:10 | disposition home or self-care (01) | DRG 775 ==
LOC: L-D 14:36 → PP1 05-11 18:30 → EDSTATUS 05-18 14:36
PROVIDERS: ADMIT Obstetrics & Gynecology; ATTEND Obstetrics & Gynecology
PROC: 10E0XZZ Delivery of Products of Conception, External Approach (ICD-10-PCS; principal; 2017-05-11)
DX: O80 Encounter for full-term uncomplicated delivery (principal); Z37.0 Single live birth; Z3A.39 39 weeks gestation of pregnancy
CPT/HCPCS: 62319; 76815; 76818; 82962; 85025; 85610; 85730; 86592; 86900; 86901; 87340; 90686; 90715; 90716; J0290; J2590; J3010; J7120; J7121